=== PATIENT | female | born 1990 | race Caucasian/White ===

== ENCOUNTER 2020-06-30 10:43 | Outpatient (REF) | payer MEDICAID, SELFPAY | END 2020-06-30 10:44 | disposition home or self-care (01) | LOC: HO.LAB 10:43 | PROVIDERS: PCP Internal Medicine; Visit Provider Internal Medicine | DX: Z20.828 Contact with and (suspected) exposure to other viral communicable diseases (principal) | CPT/HCPCS: U0003 ==

== ENCOUNTER 2020-07-29 14:53 | Outpatient (REF) | payer MEDICAID, SELFPAY | END 2020-07-29 14:54 | disposition home or self-care (01) | LOC: HO.LAB 14:53 | PROVIDERS: PCP Internal Medicine; Visit Provider Internal Medicine | DX: Z20.828 Contact with and (suspected) exposure to other viral communicable diseases (principal) | CPT/HCPCS: C9803; U0003 ==

== ENCOUNTER 2021-05-05 19:41 | Emergency (ER) | payer MEDICAID, SELFPAY ==
[2021-05-05 19:57] VITALS: RESP 18; TEMP 36.8; BMI 33.0
--- NOTE | 2021-05-05 21:32 | ED.URI ---
HPI - URI/Sore Throat General Chief Complaint: Upper Respiratory Symptoms Stated Complaint: fever, cough Time Seen by Provider: 05/05/21 21:03 Source: patient Mode of arrival: ambulatory Limitations: no limitations History of Present Illness MD elicited complaint: cough and rhinorrhea Pertinent past history: other (COVID close exposure) Onset (ago): day(s) (3) Consistency: constant Severity: mild Description of mucous: clear Able to tolerate fluids by mouth: Yes Exacerbating factors: nothing Relieving factors: nothing Context: sick contacts Associated symptoms: chills, rhinorrhea and cough Treatments prior to arrival: none Related Data Previous Rx's Medication Instructions Recorded albuterol sulfate 90 mcg/actuation 2 puff INHALATION QID PRN #6.7 g 05/05/21 aerosol inhaler dexamethasone 6 mg tablet 6 mg PO DAILY 5 Days #5 tab 05/05/21 Allergies Allergy/AdvReac Type Severity Reaction Status Date / Time pollen extracts [POLLEN] Allergy Unknown SNEEZING Unverified 05/15/20 16:57 DUST Allergy Unknown SNEEZING Uncoded 05/15/20 16:57 Seasonal allergies - spring Allergy Unknown Uncoded 04/12/19 00:00 Review of Systems Review of Systems: Constitutional : no Fever, positive Chills, positive fatigue, no Malaise ENT/Mouth : no sore throat, positive runny nose Eyes: No Discharge Cardiovascular : No Chest Pain, No SOB Respiratory : pos Cough, No Sputum Gastrointestinal : No Nausea, No Vomiting, No Diarrhea Genitourinary : No Dysuria, No Urinary Frequency Musculoskeletal : positive Myalgia Skin : No rash Neuro : No Headache PMFSH Past Medical History Attestation statement: The following information was validated with the patient. Medical History Asthma Social History Social History (Updated 05/05/21 @ 21:56 by Emilie Villafuerte DO) Patient Tobacco Use Status: Current everyday Tobacco user Advance Directives: No Advance Directives Information Provided: No Patient : No Physical Exam Vital Signs: Vital Signs: Last Vital Signs Temp 98.3 F 05/05/21 19:57 Resp 18 05/05/21 19:57 Body Mass Index 33.0 Appearance: Alert. Oriented X3. No acute distress. Eyes: Pupils equal, round and reactive to light. ENT: Pharynx normal. Neck: Normal inspection. Neck supple. CVS: Normal heart rate and rhythm. Pulses normal. Respiratory: No respiratory distress. Breath sounds normal. Skin: Skin warm and dry. Normal skin color. Extremities: No lower extremity edema. Neuro: Oriented X 3. No motor deficit. No sensory deficit. MDM - URI/Sore Throat MDM Narrative Medical decision making narrative: 30 yo female smoker with asthma comes in with URI symptoms no hypoxia not toxic clear lungs + COVID contact and positive COVID test in our ED - given her RAD though not severe per her will Rx INH and dexamethasone, given precautions to return Lab Data Labs: Lab Results 05/05/21 Range/Units 21:16 COVID-19 ([facility]) Positive A (Negative) COVID-19 Clin Com See Note Discharge Plan Discharge Clinical Impression: COVID-19 Patient Disposition: Home, Self-Care Instructions: COVID-19 (Coronavirus Disease 2019) (ED) Additional Instructions: return to ED for any worsening symptoms or concerns wear a mask, quarantine yourself, monitor your breathing Prescriptions: New albuterol sulfate 90 mcg/actuation HFA aerosol inhaler 2 puff inhalation QID PRN (Reason: shortness of breath or wheezing) Qty: 6.7 RF: 0 dexamethasone 6 mg tablet 6 mg PO DAILY 5 Days Qty: 5 RF: 0 Stand Alone Forms: Work/School Release
[2021-05-05 21:40] LABS: COVID-19 Test Positive (Negative); IDNOW Serial# 08D9AD1C
== END 2021-05-05 22:05 | disposition home or self-care (01) ==
PROVIDERS: Emergency Provider Emergency Medicine; PCP Internal Medicine
DX: U07.1 COVID-19 (principal); R50.9 Fever, unspecified
CPT/HCPCS: 36415; 87635; 99283

== ENCOUNTER → 2022-01-27 14:50 | Outpatient (BNVA) | payer MEDICAID, SELFPAY | PROVIDERS: PCP Internal Medicine; Referring Provider Internal Medicine; Visit Provider Surgery | DX: R22.0 Localized swelling, mass and lump, head (principal) | CPT/HCPCS: 99202 ==

== ENCOUNTER 2022-05-18 11:49 | Outpatient (REF) | payer MEDICAID, SELFPAY ==
[2022-05-19 03:18] LABS: CT PCR NOT DETECTED (Not Detect.); NG PCR NOT DETECTED (Not Detect.)
[2022-05-19 13:21] LABS: BV Int Neg Control Negative (Negative); BV Int Pos Control Positive (Positive)
== END 2022-05-18 11:50 | disposition home or self-care (01) ==
LOC: HO.LNP 11:49
PROVIDERS: Visit Provider Advanced Practice Midwife
DX: Z01.419 Encounter for gynecological examination (general) (routine) without abnormal findings (principal); N92.1 Excessive and frequent menstruation with irregular cycle; T83.9XXA Unspecified complication of genitourinary prosthetic device, implant and graft, initial encounter; Z11.3 Encounter for screening for infections with a predominantly sexual mode of transmission; Z79.899 Other long term (current) drug therapy; Z30.431 Encounter for routine checking of intrauterine contraceptive device
CPT/HCPCS: 87480; 87491; 87510; 87591; 87660; 99202

== ENCOUNTER 2022-05-20 08:05 | Outpatient (REF) | payer MEDICAID, SELFPAY ==
[2022-05-20 08:13] VITALS: BP 121/87; PULSE 87; RESP 16; TEMP 36.8; O2SAT 98; BMI 32.8
[2022-05-20 08:30] VITALS: BP 115/75; PULSE 91; RESP 16; O2SAT 96
--- NOTE | 2022-05-20 08:32 | W.PM.OPN ---
Operative Note Operative Note Date of Service: 05/20/22 Narrative: Preop diagnosis: Scalp mass Postop diagnosis: Scalp mass, likely lipoma Procedure: Excision of scalp mass under local anesthesia Surgeon: Elias Bailey MD Patient is 31 year old female with note of a scalp mass the mid parietal area. She understood the technique of excision under local anesthesia and was aware of the risks, benefits, and alternatives. She was brought to the minor procedure room. She was placed in in position. The area of the scalp mass on the mid parietal region was prepped and draped in the usual sterile fashion. A surgical time-out was done. I infiltrated the planned line of incision with lidocaine 1%. I made the incision overlying the using blade 15 and this was carried down through the full-thickness of the skin and subcutaneous fat. The lipoma was visualized. I sharply dissected that off of the rest of the subcutaneous layer until this was delivered and sent as a specimen. I closed the incision with full-thickness nylon 3-0 interrupted sutures. Bacitracin was applied. The procedure was completed . She tolerated procedure well. There were no immediate complications. There was minimal blood loss. This was given wound care instructions.
--- NOTE | 2022-05-20 08:37 | W.PM.OPN ---
Operative Note Operative Note Date of Service: 05/20/22 Narrative: Preop diagnosis: Mass Postop diagnosis: Scalp mass Procedure: Excision of scalp mass under local anesthesia Surgeon: Elias Bailey MD The patient is a 31 year old female with a scalp mass on the mid parietal area. She understood the technique of excision under local anesthesia. She was aware of the risks, benefits, and alternatives . She was brought to the minor procedure room. She was placed in reclining position. Area of the scalp mass was prepped and draped. Lidocaine 1% was used for local anesthesia. A surgical time-out had been done. I made an incision on the skin overlying the scalp mass using blade 15. This was carried down through the full-thickness of the skin subcutaneous fat until the lipoma was visualized. I sharply dissected the lipomatous mass off of the rest of subcutaneous layer. This was delivered and sent as a specimen. The lipoma was spherical in shape. This was about 1.5 cm in diameter.I closed with incision full-thickness nylon 3-0 interrupted sutures. Bacitracin was applied. The procedure was completed. She tolerated theprocedure well. There were no immediate complications. There was minimal blood loss. She was given wound care instructions.
== END 2022-05-20 08:06 | disposition home or self-care (01) ==
LOC: HO.MS 08:05
PROVIDERS: PCP Internal Medicine; Visit Provider Surgery
PROC: (CPT 11422; principal; 2022-05-20 08:00)
DX: L72.12 Trichodermal cyst (principal)
CPT/HCPCS: 11422; 88304

== ENCOUNTER 2022-05-28 10:56 | Outpatient (REF) | payer MEDICAID, SELFPAY ==
--- NOTE | ~2022-05-28 | US_ITS ---
EXAMINATION: US PELVIS CLINICAL INFORMATION: Presence of intrauterine device; the last menstrual period is not specified. COMPARISON: None TECHNIQUE: Ultrasound of the pelvis is performed using both transabdominal and transvaginal transducers along with Doppler. Transvaginal imaging is performed due to inadequate visualization transabdominally. FINDINGS: UTERUS: The uterus is anteverted and anteflexed. The uterus measures 8.8 x 2.6 x 4.9 cm. An intrauterine device is seen, low in position, situated within the endocervical canal. The double wall endometrial thickness is 0.2 mm. The uterus is smooth in contour and has normal myometrial echogenicity. No visible fibroid. ADNEXA: Both ovaries are visualized. There is normal color flow to the adnexa. There is no ovarian torsion. There is no pelvic ascites or fluid collection. Right ovary measures 3.4 x 2.0 x 1.6 cm (volume 9.2 mL). Tiny ovarian calcifications are incidentally noted, likely postinfectious or psammomatous in origin. These are of doubtful clinical significance. Left ovary measures 2.6 x 1.9 x 1.9 cm (volume 4.8 mL). US/US pelvic and transvaginal IMPRESSION: An intrauterine device is seen, malpositioned within the endocervical canal. The examination is otherwise unremarkable.
== END 2022-05-28 10:57 | disposition home or self-care (01) ==
LOC: HO.US 10:56
PROVIDERS: Visit Provider Advanced Practice Midwife
DX: N92.1 Excessive and frequent menstruation with irregular cycle (principal); T83.9XXA Unspecified complication of genitourinary prosthetic device, implant and graft, initial encounter
CPT/HCPCS: 76830; 76856

== ENCOUNTER → 2022-06-22 09:00 | Outpatient (BNVA) | payer MEDICAID, SELFPAY | PROVIDERS: PCP Internal Medicine; Visit Provider Advanced Practice Midwife | DX: Z30.432 Encounter for removal of intrauterine contraceptive device (principal); Z30.09 Encounter for other general counseling and advice on contraception; T83.9XXA Unspecified complication of genitourinary prosthetic device, implant and graft, initial encounter; N92.1 Excessive and frequent menstruation with irregular cycle | CPT/HCPCS: 58301; 99212 ==

== ENCOUNTER → 2022-08-20 12:59 | Outpatient (BNVA) | payer OTHER, SELFPAY | PROVIDERS: PCP Internal Medicine; Visit Provider Physician Assistant | DX: S46.911A Strain of unspecified muscle, fascia and tendon at shoulder and upper arm level, right arm, initial encounter (principal); X50.1XXA Overexertion from prolonged static or awkward postures, initial encounter | CPT/HCPCS: 99203 ==

== ENCOUNTER → 2022-08-24 10:21 | Outpatient (BNVA) | payer OTHER, SELFPAY | PROVIDERS: PCP Internal Medicine; Visit Provider Physician Assistant Medical | DX: S46.911A Strain of unspecified muscle, fascia and tendon at shoulder and upper arm level, right arm, initial encounter (principal); X50.1XXA Overexertion from prolonged static or awkward postures, initial encounter | CPT/HCPCS: 99213 ==

== ENCOUNTER → 2022-09-07 10:45 | Outpatient (BNVA) | payer OTHER, SELFPAY | PROVIDERS: PCP Internal Medicine; Visit Provider Physician Assistant Medical | DX: S46.911D Strain of unspecified muscle, fascia and tendon at shoulder and upper arm level, right arm, subsequent encounter (principal); X50.1XXD Overexertion from prolonged static or awkward postures, subsequent encounter; M70.821 Other soft tissue disorders related to use, overuse and pressure, right upper arm | CPT/HCPCS: 99213 ==

== ENCOUNTER 2022-09-30 17:00 | Outpatient (RCR) | payer OTHER, MEDICAID, SELFPAY ==
--- NOTE | 2022-09-02 14:50 | MHC.PT.EP ---
[facility] [place] Office [place] Office [place] Office [address] Yolanda Perera [address] [phone] F: [phone] F: [phone] F: [phone] F: [phone] Physical Therapy Plan of Care Date of Evaluation: Date of Surgery: Diagnosis: R shoulder strain Assessment: 31 y/o RHD female referred to PT with R shoulder strain. 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 S/s consistent with R supraspinatus strain resulting in pain and difficulty with sleeping, reaching, lifting, grooming and work duties secondary to painful R shoulder AROM (especially with eccentric lowering), decreased R shoulder strength, increased TTP, and impaired postural awareness. Recommend PT 2x/week for 4 weeks to address impairments, implement HEP, and optimize functional mobility. Frequency and Duration: The patient will be seen 2x/week for 4 weeks Short Term Goals: 3 weeks COmpliant with HEP Decrease pain by 50% with eccentric lowering from flexion (IR 5/10) [facility] Goals: 5 weeks I with HEP and self management of sx Pt will be able to lift 20# from knee height to waist with pain < 3/10 and proper mechanics Pt will improve R shoulder strength to 4/5 throughout to facilitate reaching overhead with pain < 3/10 Treatment Plan: Modalities to reduce pain, spasms and effusion. Manual therapy to restore motion and function. Therapeutic exercise to improve strength and flexibility. Neuromuscular re-education for posture and balance. Therapeutic activities to return to functional activities of daily living. Electronically signed by: Sangeeta Mireles PT Please sign and return to therapist. Thank you for your referral.
--- NOTE | 2022-10-14 15:10 | MHC.PT.DC ---
[facility] [place] Office [place] Office [place] Office [address] Yolanda Perera [address] [phone] F: [phone] F: [phone] F: [phone] F: [phone] Physical Therapy Discharge Report Diagnosis: R shoulder strain Date of Surgery: Date of Evaluation: 09/02/22 Date of Discharge: 10/14/22 Treatments to Date: 2 Cancellations to Date: 2 No Shows to Date: 3 Discharge Status: Visit Non-compliance Discharge Summary: Pt with poor attendance and is d/c secondary to noncompliant with scheduling policy. Electronically signed by: Sangeeta Mireles PT Please sign and return to therapist. Thank you for your referral.
== END 2022-10-14 15:11 | disposition home or self-care (01) ==
LOC: HO.PT 17:00
PROVIDERS: PCP Internal Medicine; Visit Provider Physician Assistant Medical
DX: S46.911D Strain of unspecified muscle, fascia and tendon at shoulder and upper arm level, right arm, subsequent encounter (principal)
CPT/HCPCS: 97110; 97140; 97161

== ENCOUNTER 2023-11-09 18:01 | Outpatient (REF) | payer MEDICAID, SELFPAY ==
[2023-11-11 23:53] LABS: C. trachomatis RNA TMA NOT DETECTED (NOT DETECTED); Candida glabrata RNA NOT DETECTED (NOT DETECTED); Candida species RNA NOT DETECTED (NOT DETECTED); N. gonorrhoeae RNA TMA NOT DETECTED (NOT DETECTED); Trichomonas vaginalis RNA NOT DETECTED (NOT DETECTED)
== END 2023-11-09 18:02 | disposition home or self-care (01) ==
LOC: HO.HHCLNP 18:01
PROVIDERS: Visit Provider Advanced Practice Midwife
DX: N76.0 Acute vaginitis (principal); R35.0 Frequency of micturition
CPT/HCPCS: 36415; 81513; 87086; 87147; 87481; 87491; 87591; 87661